=== PATIENT | male | born 1995 | race African-American/Black ===

== ENCOUNTER 2020-07-24 22:39 | Emergency (ER) | payer SELFPAY ==
[~2020-07-24 22:39] MED LIST: COLACE 100MG C100 MG PO; IBUPROFEN600 MG PO; LORTAB 7.5-3251 EACH PO; PREDNISONE 50 M50 MG PO; ZYRTEC10 MG PO
[2020-07-25 01:40] LABS: HEMOGLOBIN 14.5 gm/dl (14.0-17.5); RED BLOOD COUNT 5.11 M/UL (4.20-5.50); WHITE BLOOD COUNT 7.2 K/UL (4.5-11.0)
[2020-07-25 01:53] LABS: BUN/CREATININE RATIO 21 (0-10)
== END 2020-07-25 03:39 | disposition home or self-care (01) ==
LOC: ER1 22:39
PROVIDERS: Emergency Medicine
DX: R10.31 Right lower quadrant pain (principal); Z90.89 Acquired absence of other organs
CPT/HCPCS: 80053; 81001; 83690; 85025; 93005; 96374; 96375; 99284; J2270; J2405

== ENCOUNTER 2020-09-24 16:54 | Emergency (ER) | payer SELFPAY ==
[2020-09-24 23:14] LABS: HEMOGLOBIN 14.3 gm/dl (14.0-17.5); RED BLOOD COUNT 5.18 M/UL (4.20-5.50); WHITE BLOOD COUNT 5.3 K/UL (4.5-11.0)
[2020-09-24] MEDS ORDERED: PROAIR HFA8.5 GM INH (23:16)
[2020-09-24] MEDS ORDERED: MECLIZINE HCL25 MG PO (23:16)
[2020-09-24 23:38] LABS: BUN/CREATININE RATIO 10 (0-10)
== END 2020-09-24 23:56 | disposition home or self-care (01) ==
LOC: ER1 16:54
PROVIDERS: Physician Assistant
DX: U07.1 COVID-19 (principal); Z90.49 Acquired absence of other specified parts of digestive tract
CPT/HCPCS: 71045; 80053; 85025; 87081; 87880; 93005; 99284; U0002

== ENCOUNTER 2021-08-20 21:51 | Emergency (ER) | payer SELFPAY ==
[~2021-08-20 21:51] MED LIST changes: +MECLIZINE HCL25 MG PO; +PROAIR HFA8.5 GM INH
[2021-08-20] MEDS ORDERED: VOLTAREN ARTHRI20 GM TP (22:50)
[2021-08-20] MEDS ORDERED: NORFLEX 100 MG100 MG PO (22:50)
== END 2021-08-20 23:08 | disposition home or self-care (01) ==
LOC: ER1 21:51
DX: M25.511 Pain in right shoulder (principal)
CPT/HCPCS: 73030; 99283